=== PATIENT | female | born 1945 | race Caucasian/White ===

== ENCOUNTER 2017-06-22 11:58 | Emergency (ER) | payer OTHER ==
[~2017-06-22] VITALS: Ht 162.6 cm; Wt 58.6 kg
[2017-06-22 13:16] LABS: HEMATOCRIT 41.5 % (36.0-46.0); MCHC 33.7 G/DL (30.0-36.0); MCV 85.9 FL (83-99); MEAN PLAT.VOLUME 8.6 uM^3 (9.5-12.4); PLATELET COUNT 280 K/uL (156-360); RBC DIS.WIDTH-SD 40.6 % (39-53); RED BLOOD COUNT 4.83 M/uL (3.80-5.20); WHITE BLOOD COUNT 6.6 K/uL (4.1-10.2)
[2017-06-22 13:23] LABS: CHLORIDE 109 mEq/L (99-109); POTASSIUM 3.9 mEq/L (3.7-5.4); SODIUM 142 mEq/L (136-147)
[2017-06-22 13:25] LABS: GLUCOSE 95 mg/dL (70-99)
[2017-06-22 13:27] LABS: ANION GAP 8 MEQ/L (2-14)
[2017-06-22 13:29] LABS: GFR ESTIMATE (CALCULATED) > 59 mL/min/
[2017-06-22 13:30] LABS: UREA NITROGEN (BUN) 11 mg/dL (9-23)
[2017-06-22 15:19] LABS: ADD MIUA? YES; BILIRUBIN NEGATIVE; BLOOD NEGATIVE; COLOR YELLOW ((YELLOW)); GLUCOSE (STRIP) NEGATIVE; KETONES NEGATIVE; LEUKOCYTES MODERATE; NITRITE NEGATIVE; PROTEIN (STRIP) NEGATIVE; SPECIFIC GRAVITY 1.011 (1.000-1.030); UROBILINOGEN 0.2 MG/DL (0.2-1.0)
[2017-06-22 15:24] LABS: BACTERIA RARE /HPF; EPITHELIAL CELLS RARE /HPF; MUCUS TRACE /LPF; WHITE BLOOD CELLS 20-30 /HPF (0-5)
[2017-06-22 16:22] VITALS: BP 172/95
== END 2017-06-22 16:23 | disposition left against medical advice (07) ==
LOC: EME 11:58
PROVIDERS: Nurse Practitioner Family
DX: S05.11XA Contusion of eyeball and orbital tissues, right eye, initial encounter (principal); H53.9 Unspecified visual disturbance; R20.0 Anesthesia of skin; R53.1 Weakness; H40.9 Unspecified glaucoma; F41.9 Anxiety disorder, unspecified; W21.89XA Striking against or struck by other sports equipment, initial encounter; Y93.E9 Activity, other interior property and clothing maintenance; Z88.2 Allergy status to sulfonamides
CPT/HCPCS: 70450; 70486; 80048; 81003; 85027; 93005; 99281; 99283